=== PATIENT | female | born 1950 | race Caucasian/White ===

== ENCOUNTER 2020-02-16 14:27 | Outpatient (CLI) | payer MEDICARE, OTHER, SELFPAY ==
--- NOTE | 2020-02-16 14:31 | ECG_ITS ---
Measurements Intervals [place] Rate: 73 P: 39 AL: 167 QRS: -35 QRSD: 90 T: 29 QT: 414 QTc: 457 Interpretive Statements SINUS RHYTHM LEFT AXIS DEVIATION BORDERLINE R WAVE PROGRESSION, ANTERIOR LEADS BORDERLINE ECG Electronically Signed On 02-16-2020 15:23:54 CDT by Ruben Gaitan D.O.
[2020-02-16 14:57] LABS: Basophils Absolute Auto 0.03 K/mm3 (0.00-0.10); Basophils Percent Auto 0.4 % (0.0-1.0); Eosinophils Absolute Auto 0.18 K/mm3 (0.02-0.50); Eosinophils Percent Auto 2.6 % (1.0-6.0); Hematocrit 43.1 % (35.0-42.0); Hemoglobin 14.5 g/dL (11.7-13.8); Immature Granulocyte Absolute 0.01 K/mm3 (0.00-0.00); Immature Granulocyte Percent A 0.1 % (0.0-0.0); Lymphocytes Absolute Auto 1.65 K/mm3 (1.10-4.50); Lymphocytes Percent Auto 24.1 % (18.0-42.0); Mean Corpuscular HGB Conc 33.6 g/dL (32.0-36.0); Mean Corpuscular Hemoglobin 30.9 pg (27.0-31.0); Mean Corpuscular Volume 91.7 fL (78.0-102.0); Mean Platelet Volume 10.6 fl (9.2-11.8); Monocytes Absolute Auto 0.53 K/mm3 (0.10-0.90); Monocytes Percent Auto 7.7 % (2.0-11.0); Neutrophils Absolute Auto 4.5 K/mm3 (1.7-7.2); Neutrophils Percent Auto 65.1 % (50.0-70.0); Platelet Count Result 264 K/mm3 (150-420); Red Cell Distribution Width 12.6 % (11.6-14.4); White Blood Count 6.9 K/mm3 (4.8-10.8)
[2020-02-16 15:45] LABS: Alanine Aminotransferase 45 U/L (14-59); Albumin Level 3.6 g/dL (3.4-5.0); Alkaline Phosphatase 132 U/L (46-116); Anion Gap 12 mmol/L (8-16); Aspartate Amino Transferase 25 U/L (15-37); Bilirubin,Total 0.5 mg/dL (0.00-1.00); Blood Urea Nitrogen 22 mg/dL (7-18); Calcium 9.1 mg/dL (8.5-10.1); Carbon Dioxide 24 mmol/L (21-32); Chloride 107 mmol/L (98-108); Cholesterol 129 mg/dL (0-200); Estimated Glomerular Filt Rate > 60; Glucose 98 mg/dL (70-99); HDL Direct 46 mg/dL (40-60); LDL Cholesterol Calculated 66 mg/dL (<130); Magnesium 2.3 mg/dL (1.8-2.4); Osmolality Calculated 299 mOsm/kg (285-295); Potassium 3.8 mmol/L (3.5-5.1); Sodium 143 mmol/L (136-145); Total Protein 6.3 g/dL (6.4-8.2); Triglycerides 87 mg/dL (0-150)
[2020-02-16 16:23] LABS: Thyroid Stimulating Hormone Reflex 0.91 u/IU/mL (0.36-3.74)
== END 2020-02-16 14:28 | disposition home or self-care (01) ==
LOC: CHSCARD 14:31
PROVIDERS: PCP Family Medicine; Visit Provider Family Medicine
DX: E03.9 Hypothyroidism, unspecified (principal); I10 Essential (primary) hypertension; Z01.818 Encounter for other preprocedural examination; R00.9 Unspecified abnormalities of heart beat
CPT/HCPCS: 36415; 80053; 80061; 83735; 84443; 85025; 93005

== ENCOUNTER 2020-07-08 08:14 | Outpatient (CLI) | payer MEDICARE, OTHER, SELFPAY ==
--- NOTE | ~2020-07-08 | MR_ITS ---
EXAMINATION: MR lumbar spine wo con DATE: 07/08/2020 09:29 INDICATION: Lumbar spinal stenosis. TECHNIQUE: Magnetic resonance imaging (MRI) of the lumbar spine was performed without intravenous con trast. Sequences included sagittal T2-weighted FSE, sagittal T2-weighted FS FSE, sagittal T1-weighted FSE, and axial T2-weighted FSE. COMPARISON: None FINDINGS: There is 8 degrees levocurvature of lumbar spine. There is 3 mm retrolisthesis of L3 on L4. Vertebral body heights are normal. There is moderately decreased disc height at L2-L3 and L4-L5 and mildly decreased disc height at L3-L4 with endplate remodeling. The distal spinal cord signal intensi ty is normal. The conus medullaris is at L1. The following disc levels are specifically discussed: L1-L2: There is a central extrusion. There is no facet joint osteoarthritis. There is no neural lindsay inal stenosis. There is mild central canal stenosis. L2-L3: The disc is bulging and has an annular fissure. There is mild bilateral facet joint osteoarthr itis. There is mild bilateral neural foraminal stenosis. There is mild central canal stenosis. L3-L4: The disc is bulging. There is mild bilateral facet joint osteoarthritis. There is mild bilater al neural foraminal stenosis. There is mild central canal stenosis. L4-L5: The disc is bulging and has an annular fissure. There is moderate right and severe left facet joint osteoarthritis. There is mild right and moderate left neural foraminal stenosis. There is mild central canal stenosis. L5-S1: The disc does not extend beyond the endplate margin. There is severe bilateral facet joint ost eoarthritis. There is mild bilateral neural foraminal stenosis. There is no central canal stenosis. IMPRESSION: 1. Moderate lumbar spondylosis. Reviewed, dictated and finalized at location A. H WASHER
--- NOTE | ~2020-07-08 | MR_ITS ---
EXAMINATION: MR thoracic spine wo con DATE: 07/08/2020 09:30 INDICATION: Low back pain. Spinal stenosis. TECHNIQUE: Magnetic resonance imaging (MRI) of the thoracic spine was performed without intravenous c ontrast. Sagittal localizer T1-weighted FSE of the cervical spine was obtained. Thoracic spine sequen [place] included sagittal T2-weighted FSE, sagittal T1-weighted FSE, sagittal T2-weighted FS FSE, and axi al T2-weighted FSE. COMPARISON: None FINDINGS: Bone alignment is normal. Vertebral body heights are normal. The intervertebral disc height s are normal. At T11-T12, there is a central protrusion. There is multilevel facet joint osteoarthrit is, moderate at some levels. On the right, there is mild neural foraminal stenosis at T2-T3. On the l eft there is mild neural foraminal stenosis at T1-T2 and T2-T3. No central canal stenosis. The spinal cord signal intensity is normal. There is a small sliding hiatal hernia. There is a 1.8 cm cyst in r ight kidney. IMPRESSION: 1. Mild thoracic spondylosis. Reviewed, dictated and finalized at location A. ATRY ASSISTANT
== END 2020-07-08 08:15 | disposition home or self-care (01) ==
LOC: CHSIMG 08:16
PROVIDERS: PCP Family Medicine; Visit Provider Family Medicine
DX: M54.5 Low back pain (principal); G89.29 Other chronic pain; M48.00 Spinal stenosis, site unspecified
CPT/HCPCS: 72146; 72148

== ENCOUNTER 2020-07-14 08:16 | Outpatient (CLI) | payer MEDICARE, OTHER, SELFPAY ==
--- NOTE | ~2020-07-14 | CT_ITS ---
EXAMINATION: CT abdomen pelvis wo/w con EXAM DATE: 07/14/2020 09:13 INDICATION: N28.1 - Cyst of kidney, acquired f/u RT kidney cyst from MRI 1wk ago. TECHNIQUE: Spiral CT of the abdomen without contrast followed by both abdomen and pelvis with 100 cc intravenous Omnipaque 350. Axial, coronal and sagittal images were reviewed. The dose-length produc t (DLP) for this examination was 2038.25 mGy-cm. The exposure was tailored according to patient size (auto mA exposure control), and iterative reconstruction (ASIR) was used as additional dose reductio n technique. Correlation is made to MR examinations 07/08/2020. FINDINGS: The liver, spleen, adrenal glands and pancreas are unremarkable. There are cholecystectomy clips. At the superior pole right kidney there is a 1.7 cm enhancing mass. Portal and splenic veins are patent. Kidneys enhance symmetrically. There is no hydronephrosis. The uterus is unremarkable . Bladder poorly visualized from metallic artifact due to bilateral hip replacements. There is no retroperitoneal or pelvic lymphadenopathy. There are no findings to suggest appendicitis. 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 There is expected amount of colonic stool. No free intraperitoneal gas. The heart is n ormal in size. There are no pericardial or pleural effusions. The lung bases are unremarkable. The re are no osteoblastic or osteolytic lesions identified. IMPRESSION: Right renal 1.7 cm mass, statistically most likely renal cell cancer. I left a message for Dr. Byron Case MD on 07/14/2020 12:51 SHAFT REPAIRER. I provided suspected diag nosis, my phone number for call back if any questions. Reviewed, dictated and finalized at location A. T REPAIRER IMPRESSION: Right renal 1.7 cm mass, statistically most likely renal cell cance r. I left a message for Dr. Byron Case MD on 07/14/2020 12:51 SHAFT REPAIRER. I p rovided suspected diagnosis, my phone number for call back if any questions.
[2020-07-14 08:44] LABS: Estimated Glomerular Filt Rate 56
== END 2020-07-14 08:17 | disposition home or self-care (01) ==
LOC: CHSIMG 08:18
PROVIDERS: PCP Family Medicine; Visit Provider Family Medicine
DX: N28.1 Cyst of kidney, acquired (principal)
CPT/HCPCS: 74178; Q9967

== ENCOUNTER 2021-03-01 09:56 | Outpatient (CLI) | payer MEDICARE, SELFPAY ==
[2021-03-01 10:09] LABS: Basophils Absolute Auto 0.07 K/mm3 (0.00-0.10); Eosinophils Absolute Auto 0.21 K/mm3 (0.02-0.50); Hemoglobin 15.6 g/dL (11.7-13.8); Immature Granulocyte Absolute 0.02 K/mm3 (0.00-0.00); Immature Granulocyte Percent A 0.3 % (0.0-0.0); Lymphocytes Percent Auto 30.5 % (18.0-42.0); Mean Corpuscular HGB Conc 34.7 g/dL (32.0-36.0); Mean Corpuscular Hemoglobin 31.6 pg (27.0-31.0); Mean Corpuscular Volume 91.1 fL (78.0-102.0); Mean Platelet Volume 9.9 fl (9.2-11.8); Monocytes Absolute Auto 0.48 K/mm3 (0.10-0.90); Neutrophils Percent Auto 58.2 % (50.0-70.0); Platelet Count Result 306 K/mm3 (150-420); Red Blood Count 4.94 M/mm3 (4.20-5.40); Red Cell Distribution Width 12.1 % (11.6-14.4); White Blood Count 6.9 K/mm3 (4.8-10.8)
[2021-03-01 10:45] LABS: Alanine Aminotransferase 61 U/L (14-59); Albumin Level 3.8 g/dL (3.4-5.0); Alkaline Phosphatase 150 U/L (46-116); Anion Gap 10 mmol/L (8-16); Aspartate Amino Transferase 42 U/L (15-37); Bilirubin,Total 0.6 mg/dL (0.00-1.00); Blood Urea Nitrogen 17 mg/dL (7-18); Calcium 9.1 mg/dL (8.5-10.1); Carbon Dioxide 28 mmol/L (21-32); Chloride 106 mmol/L (98-108); Cholesterol 128 mg/dL (0-200); Estimated Glomerular Filt Rate > 60; Glucose 99 mg/dL (70-99); HDL Direct 62 mg/dL (40-60); Iron 90 ug/dL (50-170); LDL Cholesterol Calculated 56 mg/dL (<130); Osmolality Calculated 299 mOsm/kg (285-295); Percent Iron Saturation 33 % (12-57); Potassium 4.1 mmol/L (3.5-5.1); Sodium 144 mmol/L (136-145); Thyroid Stimulating Hormone Reflex 0.91 u/IU/mL (0.36-3.74); Total Protein 6.4 g/dL (6.4-8.2); Triglycerides 50 mg/dL (0-150)
== END 2021-03-01 09:57 | disposition home or self-care (01) ==
LOC: CHSLAB 09:58
PROVIDERS: PCP Family Medicine; Visit Provider Family Medicine
DX: I10 Essential (primary) hypertension (principal); E03.9 Hypothyroidism, unspecified; Z98.84 Bariatric surgery status; R79.89 Other specified abnormal findings of blood chemistry
CPT/HCPCS: 36415; 80053; 80061; 83540; 83550; 84443; 85025